=== PATIENT | female | born 1940 | race Caucasian/White ===

== ENCOUNTER 2017-01-05 13:32 | Emergency (ER) | payer OTHER ==
[~2017-01-05] VITALS: Ht 165.1 cm; Wt 54.6 kg
[~2017-01-05 13:32] MED LIST: AMARYL1 MG PO; BENAZEPRIL HCL20 MG PO; CARDIZEM CD240 MG PO; CARDIZEM CD360 MG PO; CIPROFLOXACIN500 M1 PO; Cardizem CD,Cartia XT,Tiazac PO; DIFLUCAN100 MG PO; DILTIAZEM HCL360 MG PO; DOCUSATE SODIU100 MG PO; DUONEB 2.5-0.5 M3 ML IH; GEMFIBROZIL600 MG PO; GLIMEPIRIDE1 MG PO; GLUCOPHAGE1000 MG PO; HYDROCODON-ACE1 EAC7 PO; KENALOG IN ORABA5 GM MM; LEVOTHYROXINE25 MCG PO; LOPRESSOR25 MG PO; LOTENSIN10 MG PO; MAGIC MOUTHWASH1 ML MM; MILK OF MAGNESI10 ML PO; PEN-VEE K,VEET500 MG PO; PERCOCET 5/31 TABLET PO; PRAVACHOL80 MG PO; SYNTHROID25 MCG PO; XARELTO20 MG PO
[2017-01-05 14:43] LABS: HEMATOCRIT 46.1 % (36.0-46.0); MCH 31.8 PG (29.0-34.0); MCHC 33.6 G/DL (30.0-36.0); MCV 94.5 FL (83-99); MEAN PLAT.VOLUME 10.7 uM^3 (9.5-12.4); PLATELET COUNT 313 K/uL (156-360); RBC DIS.WIDTH-SD 44.8 % (39-53); RED BLOOD COUNT 4.88 M/uL (3.80-5.20)
[2017-01-05 14:52] LABS: CHLORIDE 106 mEq/L (99-109); POTASSIUM 4.1 mEq/L (3.7-5.4); SODIUM 139 mEq/L (136-147)
[2017-01-05 14:53] LABS: GLUCOSE 136 mg/dL (70-99)
[2017-01-05 14:55] LABS: ANION GAP 15 MEQ/L (2-14)
[2017-01-05 14:57] LABS: GFR ESTIMATE (CALCULATED) 42 mL/min/
[2017-01-05 14:58] LABS: UREA NITROGEN (BUN) 18 mg/dL (9-23)
[2017-01-05 15:03] LABS: TROP-I INTERPRETATION NEGATIVE; TROPONIN-I 0.04 ng/mL (0.0-0.30)
[2017-01-05 15:52] LABS: PROTHROMBIN TIME 49.7 (9.2-11.2); PTT 49.7 (25-32)
[2017-01-05 15:57] LABS: INTER. NORMALIZED RATIO 4.7
[2017-01-05] MEDS ORDERED: TESSALON PERLE100 MG PO (17:46)
[2017-01-05 18:17] VITALS: BP 132/84
== END 2017-01-05 18:19 | disposition home or self-care (01) ==
LOC: EME 13:32
PROVIDERS: Emergency Medicine
DX: E86.0 Dehydration (principal); R05 Cough; R11.0 Nausea; Z91.81 History of falling; I48.91 Unspecified atrial fibrillation; Z79.01 Long term (current) use of anticoagulants; I10 Essential (primary) hypertension; E78.5 Hyperlipidemia, unspecified; Z85.43 Personal history of malignant neoplasm of ovary; Z90.722 Acquired absence of ovaries, bilateral; Z90.49 Acquired absence of other specified parts of digestive tract; Z87.891 Personal history of nicotine dependence
CPT/HCPCS: 70450; 71020; 80048; 84484; 85027; 85610; 85730; 93005; 99281; 99285; J7030

== ENCOUNTER 2017-01-07 13:35 | Emergency (ER) | payer OTHER ==
[~2017-01-07] VITALS: Ht 165.1 cm; Wt 64.1 kg
[~2017-01-07 13:35] MED LIST changes: +TESSALON PERLE100 MG PO
[2017-01-07 14:44] LABS: ADD MIUA? YES; BILIRUBIN NEGATIVE; BLOOD SMALL; COLOR YELLOW ((YELLOW)); GLUCOSE (STRIP) 50; KETONES NEGATIVE; LEUKOCYTES LARGE; NITRITE NEGATIVE; PROTEIN (STRIP) 100; SPECIFIC GRAVITY 1.016 (1.000-1.030)
[2017-01-07 14:54] LABS: BACTERIA 1+ /HPF; EPITHELIAL CELLS 2+ /HPF; HYALINE CASTS 0-5 /LPF; MUCUS TRACE /LPF; RED BLOOD CELLS 0-5 /HPF (0-5); UCUL ADDED? NO; WHITE BLOOD CELLS 30-40 /HPF (0-5)
[2017-01-07 15:24] LABS: CHLORIDE 110 mEq/L (99-109); EOSINOPHIL (%) 1.7 % (0-5); EOSINOPHIL COUNT 0.2 K/uL (0-0.3); HEMATOCRIT 40.3 % (36.0-46.0); IMMATURE GRANULOCYTE (%) 0.4 % (0.0-0.7); INSTRUMENT ABS NEUTROPHIL CT 6.8 K/uL; LYMPHOCYTE COUNT 1.5 K/uL (1.0-2.8); MCH 31.3 PG (29.0-34.0); MCHC 33.5 G/DL (30.0-36.0); MCV 93.3 FL (83-99); MEAN PLAT.VOLUME 10.6 uM^3 (9.5-12.4); MONOCYTE (%) 10.4 % (3-12); NEUTROPHIL (%) 71.8 % (45-76); NEUTROPHIL COUNT 6.8 K/uL (1.8-6.4); PLATELET COUNT 247 K/uL (156-360); RBC DIS.WIDTH-CV 12.8 % (11.8-14.6); RBC DIS.WIDTH-SD 43.8 % (39-53); RED BLOOD COUNT 4.32 M/uL (3.80-5.20); WHITE BLOOD COUNT 9.5 K/uL (4.1-10.2)
[2017-01-07 15:25] LABS: POTASSIUM 3.7 mEq/L (3.7-5.4); SODIUM 141 mEq/L (136-147)
[2017-01-07 15:27] LABS: GLUCOSE 156 mg/dL (70-99)
[2017-01-07 15:28] LABS: ANION GAP 15 MEQ/L (2-14)
[2017-01-07 15:29] LABS: INTER. NORMALIZED RATIO 4.3; TOTAL BILIRUBIN 0.5 mg/dL (0.0-1.0)
[2017-01-07 15:30] LABS: ALKALINE PHOSPHATASE 91 IU/L (3-129); GFR ESTIMATE (CALCULATED) 57 mL/min/
[2017-01-07 15:32] LABS: UREA NITROGEN (BUN) 13 mg/dL (9-23)
[2017-01-07] MEDS ORDERED: CIPRO500 MG PO (15:47)
[2017-01-07] MEDS ORDERED: WARFARIN SODIUM2 MG PO (16:00)
[2017-01-07] MEDS ORDERED: METFORMIN HCL500 MG PO (16:01)
[2017-01-07 16:22] VITALS: BP 128/80
== END 2017-01-07 16:22 | disposition home or self-care (01) ==
LOC: EME 13:35
PROVIDERS: Physician Assistant
DX: D68.4 Acquired coagulation factor deficiency (principal); T45.515A Adverse effect of anticoagulants, initial encounter; N39.0 Urinary tract infection, site not specified; I48.91 Unspecified atrial fibrillation; I10 Essential (primary) hypertension; E11.9 Type 2 diabetes mellitus without complications; E78.5 Hyperlipidemia, unspecified; Z85.43 Personal history of malignant neoplasm of ovary; Z90.710 Acquired absence of both cervix and uterus; Z87.891 Personal history of nicotine dependence
CPT/HCPCS: 80053; 81003; 85025; 85610; 99281; 99283

== ENCOUNTER 2017-10-02 15:16 | Inpatient (IN) | payer OTHER ==
[~2017-10-02] VITALS: Ht 165.1 cm; Wt 69.3 kg
[~2017-10-02 15:16] MED LIST changes: +CIPRO500 MG PO; +METFORMIN HCL500 MG PO; +WARFARIN SODIUM5 MG PO
[2017-10-02 16:26] LABS: BASOPHIL (%) 0.2 % (0-1); EOSINOPHIL (%) 0 % (0-5); HEMATOCRIT 41.5 % (36.0-46.0); HEMOGLOBIN 13.8 G/DL (11.9-15.5); LYMPHOCYTE COUNT 0.9 K/uL (1.0-2.8); MCH 31.7 PG (29.0-34.0); MCHC 33.3 G/DL (30.0-36.0); MCV 95.4 FL (83-99); MONOCYTE (%) 8.8 % (3-12); MONOCYTE COUNT 1.1 K/uL (0-0.8); NEUTROPHIL COUNT 10.2 K/uL (1.8-6.4); PLATELET COUNT 160 K/uL (156-360); RBC DIS.WIDTH-CV 13.8 % (11.8-14.6); RBC DIS.WIDTH-SD 48.7 % (39-53); RED BLOOD COUNT 4.35 M/uL (3.80-5.20); WHITE BLOOD COUNT 12.2 K/uL (4.1-10.2)
[2017-10-02 16:36] LABS: PTT 53.2 SEC (25-37)
[2017-10-02 16:37] LABS: ALBUMIN 4.3 g/dL (3.2-4.8); CHLORIDE 106 mEq/L (99-109); POTASSIUM 3.5 mEq/L (3.7-5.4); SODIUM 140 mEq/L (136-147)
[2017-10-02 16:39] LABS: GLUCOSE 180 mg/dL (70-99); TOTAL PROTEIN 8.1 g/dL (6.4-8.3)
[2017-10-02 16:41] LABS: TOTAL BILIRUBIN 1.2 mg/dL (0.0-1.0)
[2017-10-02 16:43] LABS: ALKALINE PHOSPHATASE 91 IU/L (3-129); CREATININE 1.8 mg/dL (0.6-1.3); GFR ESTIMATE (CALCULATED) 29 mL/min/; INTER. NORMALIZED RATIO 6.9
[2017-10-02 16:44] LABS: UREA NITROGEN (BUN) 27 mg/dL (9-23)
[2017-10-02 16:45] LABS: AST (GOT) 18 IU/L (2-34)
[2017-10-02 16:46] LABS: ALT (GPT) 13 IU/L (3-49); LIPASE 10 U/L (1.0-51.0)
[2017-10-02 16:49] LABS: TROP-I INTERPRETATION NEGATIVE; TROPONIN-I 0.01 ng/mL (0.0-0.30)
[2017-10-02] MEDS ORDERED: PIOGLITAZONE HC15 MG PO (18:41)
[2017-10-02] MEDS ORDERED: DILTIAZEM 24HR240 MG PO (18:42)
[2017-10-02] MEDS ORDERED: LEVOTHYROXINE25 MCG PO (18:43)
[2017-10-02] MEDS ORDERED: METOPROLOL TART25 MG PO (18:44)
[2017-10-02] MEDS ORDERED: PRAVASTATIN SOD80 MG PO (18:45)
[2017-10-02 21:13] LABS: APPEARANCE SL.HAZY ((CLEAR)); BILIRUBIN NEGATIVE; BLOOD MODERATE; COLOR YELLOW ((YELLOW)); GLUCOSE (STRIP) NEGATIVE; KETONES NEGATIVE; LEUKOCYTES MODERATE; NITRITE NEGATIVE; PROTEIN (STRIP) 100; SPECIFIC GRAVITY 1.012 (1.000-1.030); UROBILINOGEN 0.2 MG/DL (0.2-1.0)
[2017-10-02 21:31] LABS: BACTERIA RARE /HPF; EPITHELIAL CELLS RARE /HPF; MUCUS TRACE /LPF; RED BLOOD CELLS 15-20 /HPF (0-5); UCUL ADDED? YES; WHITE BLOOD CELLS TNTC /HPF (0-5)
[2017-10-02 23:13] LABS: C DIFF TOXIN NEGATIVE (NEGATIVE)
[2017-10-03] VITALS (12 sets, daily range): BP systolic 95–147; BP diastolic 56–87
[2017-10-03 05:08] LABS: CHLORIDE 113 mEq/L (99-109)
[2017-10-03 05:09] LABS: MCH 31.9 PG (29.0-34.0); MCHC 33.8 G/DL (30.0-36.0); MCV 94.4 FL (83-99); RBC DIS.WIDTH-CV 13.7 % (11.8-14.6); RBC DIS.WIDTH-SD 47.9 % (39-53); SODIUM 141 mEq/L (136-147); WHITE BLOOD COUNT 8.6 K/uL (4.1-10.2)
[2017-10-03 05:10] LABS: GLUCOSE 128 mg/dL (70-99)
[2017-10-03 05:14] LABS: CREATININE 1.4 mg/dL (0.6-1.3); GFR ESTIMATE (CALCULATED) 39 mL/min/
[2017-10-03 05:15] LABS: UREA NITROGEN (BUN) 24 mg/dL (9-23)
[2017-10-03 05:16] LABS: POTASSIUM 2.6 mEq/L (3.7-5.4)
[2017-10-03 05:25] LABS: HEMOGLOBIN 10.8 G/DL (11.9-15.5); RED BLOOD COUNT 3.39 M/uL (3.80-5.20)
[2017-10-03 07:05] LABS: PLAT.SUFFICIENCY DECREASED
[2017-10-03 07:06] LABS: PLATELET COUNT 108 K/uL (156-360)
[2017-10-03 09:03] LABS: ALBUMIN 3.4 g/dL (3.2-4.8)
[2017-10-03 09:04] LABS: MAGNESIUM 1.3 mg/dL (1.3-2.7)
[2017-10-03 09:08] LABS: ALKALINE PHOSPHATASE 78 IU/L (3-129)
[2017-10-03 09:11] LABS: ALT (GPT) 12 IU/L (3-49); AST (GOT) 21 IU/L (2-34); DIRECT BILIRUBIN 0.4 mg/dL (0.0-0.3); TOTAL BILIRUBIN 0.4 mg/dL (0.0-1.0)
[2017-10-03 09:12] LABS: TOTAL PROTEIN 5.3 g/dL (6.4-8.3)
[2017-10-03 14:13] LABS: INTER. NORMALIZED RATIO 6.2
[2017-10-03 16:21] LABS: CHLORIDE 111 MEQ/L (99-109); CREATININE 1.4 MG/DL (0.6-1.3); GFR ESTIMATE (CALCULATED) 39 mL/min/; GLUCOSE 169 mg/dL (70-99); UREA NITROGEN (BUN) 26 mg/dL (9-23)
[2017-10-03 16:27] LABS: POTASSIUM 3.9 MEQ/L (3.7-5.4); SODIUM 133 MEQ/L (136-147)
[2017-10-03 17:22] LABS: BASE EXCESS -12.1 mEq/L (-3 to +3); BICARBONATE 11.6 mEq/L (22-26); CARBOXY HGB 1.1 % (0-5); METHEMOGLOBIN 1.3 % (0-1.5); PCO2 21 mm Hg (35-45); PO2 65 mm Hg (80-100)
[2017-10-03 17:23] LABS: COMMENTS - BLOOD GASES A+; DEVICE CANNULA; O2 FLOW 2 L/MIN; SITE RR; TOTAL RESP RATE 18 resp/min; pH 7.35 (7.35-7.45)
[2017-10-04 04:00] VITALS: BP 114/67
[2017-10-04 05:39] LABS: INTER. NORMALIZED RATIO 2.5
[2017-10-04 05:46] LABS: TROP-I INTERPRETATION NEGATIVE; TROPONIN-I 0.01 ng/mL (0.0-0.30)
[2017-10-04 06:01] LABS: HEMATOCRIT 30.6 % (36.0-46.0); HEMOGLOBIN 9.9 G/DL (11.9-15.5); MCH 30.5 PG (29.0-34.0); MCHC 32.4 G/DL (30.0-36.0); MCV 94.2 FL (83-99); PLATELET COUNT 109 K/uL (156-360); RBC DIS.WIDTH-CV 13.9 % (11.8-14.6); RBC DIS.WIDTH-SD 47.8 % (39-53); RED BLOOD COUNT 3.25 M/uL (3.80-5.20); WHITE BLOOD COUNT 8.1 K/uL (4.1-10.2)
[2017-10-04 06:07] LABS: CHLORIDE 111 MEQ/L (99-109); CREATININE 1.4 MG/DL (0.6-1.3); GFR ESTIMATE (CALCULATED) 39 mL/min/; SODIUM 137 MEQ/L (136-147); UREA NITROGEN (BUN) 25 mg/dL (9-23)
[2017-10-04 06:13] LABS: GLUCOSE 112 mg/dL (70-99); POTASSIUM 2.9 MEQ/L (3.7-5.4)
[2017-10-04 06:37] LABS: ANISOCYTOSIS 1+; BASOPHIL (%) 0.1 % (0-1); EOSINOPHIL (%) 0.9 % (0-5); EOSINOPHIL COUNT 0.1 K/uL (0-0.3); IMMATURE GRANULOCYTE (%) 0.9 % (0.0-0.7); LYMPHOCYTE (%) 9.4 % (15-42); LYMPHOCYTE COUNT 0.8 K/uL (1.0-2.8); MONOCYTE COUNT 0.6 K/uL (0-0.8); NEUTROPHIL (%) 81.7 % (45-76); NEUTROPHIL COUNT 6.6 K/uL (1.8-6.4)
[2017-10-04 08:16] VITALS: BP 134/64
[2017-10-04 12:10] VITALS: BP 133/64
[2017-10-04 16:00] VITALS: BP 133/78
[2017-10-04 19:30] VITALS: BP 130/83
[2017-10-04 23:00] VITALS: BP 104/59
[2017-10-05 04:30] VITALS: BP 138/82
[2017-10-05 06:09] LABS: HEMATOCRIT 30.2 % (36.0-46.0); HEMOGLOBIN 10.2 G/DL (11.9-15.5); MCH 31.3 PG (29.0-34.0); MCHC 33.8 G/DL (30.0-36.0); MCV 92.6 FL (83-99); NRBC (%) 0.3 /100 WBC (0-0); PLATELET COUNT 121 K/uL (156-360); RBC DIS.WIDTH-CV 13.8 % (11.8-14.6); RBC DIS.WIDTH-SD 47.8 % (39-53); RED BLOOD COUNT 3.26 M/uL (3.80-5.20); WHITE BLOOD COUNT 7.6 K/uL (4.1-10.2)
[2017-10-05 06:10] LABS: INTER. NORMALIZED RATIO 1.6
[2017-10-05 06:40] LABS: ALKALINE PHOSPHATASE 75 IU/L (3-129); ALT (GPT) 34 IU/L (3-49); AST (GOT) 55 IU/L (2-34); CHLORIDE 109 MEQ/L (99-109); CREATININE 1.1 MG/DL (0.6-1.3); GFR ESTIMATE (CALCULATED) 51 mL/min/; GLUCOSE 117 mg/dL (70-99); POTASSIUM 3.2 MEQ/L (3.7-5.4); SODIUM 139 MEQ/L (136-147); TOTAL BILIRUBIN 0.6 MG/DL (0.0-1.0); TOTAL PROTEIN 5.6 G/DL (6.4-8.3); UREA NITROGEN (BUN) 23 mg/dL (9-23)
[2017-10-05 07:13] LABS: BASOPHIL (%) 0.3 % (0-1); EOSINOPHIL (%) 1.8 % (0-5); EOSINOPHIL COUNT 0.1 K/uL (0-0.3); IMMATURE GRANULOCYTE (%) 0.9 % (0.0-0.7); LYMPHOCYTE (%) 8.8 % (15-42); LYMPHOCYTE COUNT 0.7 K/uL (1.0-2.8); MONOCYTE (%) 8.7 % (3-12); MONOCYTE COUNT 0.7 K/uL (0-0.8); NEUTROPHIL (%) 79.5 % (45-76); NEUTROPHIL COUNT 6.1 K/uL (1.8-6.4); PLAT.SUFFICIENCY DECREASED
[2017-10-05 07:58] VITALS: BP 135/90
[2017-10-05 10:30] LABS: HEMOGLOBIN A1c (GLYCOHEMOGLOB) 6.9 % (Below 5.7)
[2017-10-05 11:13] VITALS: BP 116/71
[2017-10-05 14:55] VITALS: BP 124/71
[2017-10-05 19:53] VITALS: BP 134/82
[2017-10-05 22:47] VITALS: BP 131/84
[2017-10-06 00:02] VITALS: BP 120/73
[2017-10-06 04:05] VITALS: BP 136/78
[2017-10-06 06:38] LABS: INTER. NORMALIZED RATIO 1.6
[2017-10-06 06:49] LABS: BASOPHIL (%) 0.5 % (0-1); EOSINOPHIL (%) 1.8 % (0-5); EOSINOPHIL COUNT 0.1 K/uL (0-0.3); HEMATOCRIT 29.5 % (36.0-46.0); HEMOGLOBIN 10.1 G/DL (11.9-15.5); IMMATURE GRANULOCYTE (%) 1.8 % (0.0-0.7); LYMPHOCYTE (%) 14.7 % (15-42); LYMPHOCYTE COUNT 0.9 K/uL (1.0-2.8); MCH 31.4 PG (29.0-34.0); MCHC 34.2 G/DL (30.0-36.0); MCV 91.6 FL (83-99); MONOCYTE (%) 11.9 % (3-12); MONOCYTE COUNT 0.7 K/uL (0-0.8); NEUTROPHIL (%) 69.3 % (45-76); NEUTROPHIL COUNT 4.2 K/uL (1.8-6.4); PLATELET COUNT 134 K/uL (156-360); RBC DIS.WIDTH-CV 13.7 % (11.8-14.6); RBC DIS.WIDTH-SD 46.5 % (39-53); RED BLOOD COUNT 3.22 M/uL (3.80-5.20); WHITE BLOOD COUNT 6.1 K/uL (4.1-10.2)
[2017-10-06 06:59] LABS: CHLORIDE 107 MEQ/L (99-109); CREATININE 1.1 MG/DL (0.6-1.3); GFR ESTIMATE (CALCULATED) 51 mL/min/; GLUCOSE 108 mg/dL (70-99); POTASSIUM 3.5 MEQ/L (3.7-5.4); SODIUM 142 MEQ/L (136-147); UREA NITROGEN (BUN) 18 mg/dL (9-23)
[2017-10-06 07:41] VITALS: BP 140/90
[2017-10-06] MEDS ORDERED: CIPROFLOXACIN250 MG PO (11:23)
[2017-10-06 11:49] VITALS: BP 122/80
== END 2017-10-06 13:05 | disposition home health service (06) | DRG 871 ==
LOC: EME 15:16 → 4EAST 23:34 → 4WEST 23:34 → EDOF 23:34 → ENRESERV 23:35 → 4WEST 10-03 00:58 → ENRESERV 10-03 16:20 → 4EAST 10-03 18:01 → 5EAST 10-05 17:51 → ENRESERV 10-05 21:00 → 5EAST 10-05 22:33
PROVIDERS: Hospitalist; Internal Medicine Cardiovascular Disease; Physician Assistant; Student in an Organized Health Care Education/Training Program
DX: A41.9 Sepsis, unspecified organism (principal); J96.01 Acute respiratory failure with hypoxia; I48.0 Paroxysmal atrial fibrillation; N10 Acute pyelonephritis; I10 Essential (primary) hypertension; E78.5 Hyperlipidemia, unspecified; E86.0 Dehydration; E11.9 Type 2 diabetes mellitus without complications; E03.9 Hypothyroidism, unspecified; Z79.01 Long term (current) use of anticoagulants; E87.2 Acidosis; E87.6 Hypokalemia; N17.9 Acute kidney failure, unspecified; K52.9 Noninfective gastroenteritis and colitis, unspecified; Z87.891 Personal history of nicotine dependence; D68.32 Hemorrhagic disorder due to extrinsic circulating anticoagulants; T45.515A Adverse effect of anticoagulants, initial encounter; Z85.43 Personal history of malignant neoplasm of ovary; Z92.21 Personal history of antineoplastic chemotherapy; B96.20 Unspecified Escherichia coli [E. coli] as the cause of diseases classified elsewhere
CPT/HCPCS: 36600; 71046; 74176; 80048; 80048 91; 80053; 80076; 81003; 82803; 82948; 83036; 83605; 83690; 83735; 84132 91; 84484; 85025; 85027; 85610; 85730; 87040; 87077; 87086; 87186; 87493; 87502; 87641; 87801; 93005; 94799; 99281; 99285; J0692; J0696; J1160; J1815; J2060; J2405; J2765; J3475; J3480; J7030; J7120